=== PATIENT | male | born 1980 | race Caucasian/White ===

== ENCOUNTER 2022-02-11 15:59 | Emergency (ER) | payer MEDICARE, MEDICAID, SELFPAY ==
--- NOTE | ~2022-02-11 | XR_ITS ---
EXAMINATION: XR hand LT min 3V DATE: 02/11/2022 16:42 INDICATION: Left hand swelling. TECHNIQUE: 3 views of left hand were obtained. COMPARISON: None. FINDINGS: Bone alignment is normal. No fracture. Joint spaces are well maintained. IMPRESSION: 1. Normal left hand. Reviewed, dictated and finalized at location A. IMPRESSION: 1. Normal left hand.
[2022-02-11 16:12] VITALS: BP 120/73; PULSE 91; RESP 20; TEMP 37; O2SAT 95
--- NOTE | 2022-02-11 16:48 | ED.UPPEXIN ---
HPI - Extremity Injury (Upper) General Stated Complaint: Hurt left hand during fall Time Seen by Provider: 02/11/22 16:48 Source: patient and RN notes reviewed Mode of arrival: ambulatory Limitations: no limitations History of Present Illness HPI narrative: 41-year-old male with history of seizure disorder presents with concern for pain to his left hand. Reports he was putting a license plate on his daughter's car outside today when he apparently fell and injured his hand, however he does not recall the fall or what he did just after the fall. Patient reports he has a seizure disorder, he has a vagal nerve stimulator which has not been turned on for several years, he takes medication for seizures. He is not sure if he had a seizure or not. He denies any recent or current headache, dizziness, chest pain, shortness of breath. The incident was not witnessed. He denies any other injury other than left hand pain and some small abrasions to his hand. MD complaint: injury to: left and hand Related Data Allergies Allergy/AdvReac Type Severity Reaction Status Date / Time No Known Allergies Allergy Unverified 02/11/22 16:19 Review of Systems Review of Systems: CONSTITUTIONAL: Denies malaise, chills, sweats, or fever. SKIN: Reports small abrasions to the left hand MUSCULOSKELETAL: Reports left hand pain, swelling NEUROLOGIC: Denies numbness, weakness. Reports history of seizures All systems reviewed & are unremarkable except as noted in HPI and below PMFSH Family History Family History (Updated 03/01/16 @ 16:01 by DOCTOR UNKNOWN) Other Cerebrovascular accident Depression Diabetes mellitus Family history of cardiovascular disease Family history of chronic obstructive pulmonary disease Family history of congestive heart failure Family history of mental disorder Family history of obesity Family history of thyroid disease Social History Social History Smoking status: Never smoker Alcohol intake: never Comments At time of signature, agree with nursing past medical, surgical, social and family history. There is no relevant family history pertinent to the presenting complaint Exam Narrative: GENERAL: Well-appearing, well-nourished, and in no acute distress. HEAD: Normocephalic EYES: PERRLA, conjunctivae clear NECK: Supple. CHEST: Speaks in full sentences. No respiratory distress. HEART: Regular rate and rhythm. Normal and equal peripheral pulses. EXTREMITIES:Left hand and digits of hand have normal strength and sensation. 5/5 strength with digit flexion, extension. Range of motion normal. No clubbing, cyanosis, or edema noted. No point tenderness. Normal digital cascade with flexion of fingers, median, ulnar and radial nerve intact. Normal sensation of each side of finger. Can perform 'okay' sign, 'cross over finger test of index and middle fingers', cannot 'thumbs up' sign. No scissoring. Normal thumb opposition. Good capillary refill and radial pulse. Distal capillary refill less than 3 seconds. SKIN: Warn, dry, intact, pink. No rash. Very superficial small abrasions noted to the palmar aspect of the hand without surrounding erythema, edema, induration, drainage NEURO: Alert and oriented x3. PSYCH: Normal mood and affect Course Course Emergency Course: Patient is aware of diagnosis, understands and agrees to treatment plan. Anticipatory guidance given. Patient agrees to follow-up as directed and is aware of reasons to seek care at the emergency department. Portions of this record may have been created with voice recognition software Level of Care: Express Care Visit Vital Signs Vital signs: Vital Signs Temperature 98.6 F 02/11/22 16:12 Pulse Rate 91 02/11/22 16:12 Respiratory Rate 20 02/11/22 16:12 Blood Pressure 120/73 02/11/22 16:12 Pulse Oximetry 95 02/11/22 16:12 Oxygen Delivery Room Air 02/11/22 16:12 Temperature 98.6 F 02/11/22 16:12 Pulse Rate 91 02/11/22 16:12
== END 2022-02-11 17:06 | disposition home or self-care (01) ==
PROVIDERS: Emergency Provider Nurse Practitioner; PCP Nurse Practitioner Family
DX: S63.92XA Sprain of unspecified part of left wrist and hand, initial encounter (principal); W19.XXXA Unspecified fall, initial encounter; G40.909 Epilepsy, unspecified, not intractable, without status epilepticus; K21.9 Gastro-esophageal reflux disease without esophagitis; E11.9 Type 2 diabetes mellitus without complications; E03.9 Hypothyroidism, unspecified; Z85.47 Personal history of malignant neoplasm of testis; Z92.21 Personal history of antineoplastic chemotherapy; Z90.79 Acquired absence of other genital organ(s); Z96.82 Presence of neurostimulator
CPT/HCPCS: 73130; 99213; G0463